=== PATIENT | female | born 2000 | race Caucasian/White ===

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

== ENCOUNTER 2024-03-28 10:46 | Emergency (ER) | payer OTHER, SELFPAY ==
--- NOTE | ~2024-03-28 | XR_ITS ---
EXAMINATION: XR forearm LT 2V, XR hand LT min 3V DATE: 03/28/2024 11:17 INDICATION: Dog bite injury to the left hand and proximal forearm TECHNIQUE: 1. AP an lateral views of the left forearm were obtained. 2. AP, oblique and lateral views of the left hand were obtained. COMPARISON: none FINDINGS: Bone alignment is normal from the left elbow through the hand. No fracture. Joint spaces are normal. Soft tissues are unremarkable. No elbow joint effusion. IMPRESSION: 1. Negative left hand and forearm radiographs. Reviewed, dictated and finalized at location A. IMPRESSION: 1. Negative left hand and forearm radiographs.
[2024-03-28 11:02] VITALS: BP 132/99; PULSE 77; RESP 16; TEMP 36.9; O2SAT 100
--- NOTE | 2024-03-28 11:28 | ED.UPPEXIN ---
HPI - Extremity Injury (Upper) General Chief Complaint: Extremity Injury, Upper Stated Complaint: left arm injury @ work Time Seen by Provider: 03/28/24 11:19 Source: patient and RN notes reviewed Mode of arrival: ambulatory Limitations: no limitations History of Present Illness HPI narrative: Patient presents today complaining of pain in tingling to the left forearm and hand. 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 The dog bit her slightly without breaking the skin, then pounced on her left forearm. Immediately she had pain in her left neck and shoulder as well as her forearm and hand. The neck and shoulder pain resolved, but the forearm and hand pain as well as tingling in the forearm and hand have persisted. The pain is slight, but the tingling is her primary concern. No treatment prior to arrival. Related Data Home Medications Medication Instructions Recorded Confirmed No Home Medications 10/17/21 10/17/21 Allergies Allergy/AdvReac Type Severity Reaction Status Date / Time latex Allergy Rash Verified 03/28/24 11:25 Review of Systems Review of Systems: CONSTITUTIONAL: Denies body aches, fever, chills, or sweats. EYES: Denies visual changes, redness, or discharge. ENT: Denies rhinorrhea, congestion, sore throat, or otalgia. CARDIOVASCULAR: Denies chest pain, palpitations, or edema. RESPIRATORY: Denies cough or dyspnea. GASTROINTESTINAL: Denies abdominal pain, nausea, vomiting, or diarrhea. GENITOURINARY: Denies dysuria or hematuria. SKIN: Denies rash, itching, or wounds. MUSCULOSKELETAL: + left forearm and hand injury NEUROLOGIC: Denies headache, numbness, or weakness.+ tingling to the left forearm and hand PSYCH: Denies depression or anxiety. [facility] Past Medical History Medical History Bipolar affect, depressed Surgical History Surgical History No pertinent past surgical history Social History Social History Living arrangements: with family Gender identity (if verbalized by the patient): Female Comments At time of signature, I have reviewed and agree with nursing past medical, surgical, social and family history unless otherwise noted. Please see nursing chart for further information. There is no relevant family history pertinent to the presenting complaint Exam Narrative: GENERAL: Well-appearing, well-nourished, and in no acute distress. HEAD: Normocephalic, atraumatic. EYES: EOMI. No redness or drainage. Conjunctivae normal. ENT: Mucous membranes pink and moist. NECK: Normal AROM. CHEST: No respiratory distress. EXTREMITIES: Left arm: Tenderness to the distal radius. No edema, deformity, ecchymosis to the or hand. Distal sensation in all 5 fingers, but patient does report tingling in fingers 1 through 3 as well as the hand and distal forearm. Full AROM of wrist with increased tingling. Patient has a faint superficial linear abrasion to the mid forearm from the dog's tooth, but no break in the skin. No tenderness to the elbow SKIN: Warm, dry, no rash. Capillary refill normal. Normal skin turgor. NEURO: No focal deficits. Alert and oriented x3. Gait steady. PSYCH: Normal affect. No signs of depression or anxiety. Course Course Level of Care: Express Care Visit Vital Signs Vital signs: Vital Signs Temperature 98.4 F 03/28/24 11:02 Pulse Rate 77 03/28/24 11:02 Respiratory Rate 16 03/28/24 11:02 Blood Pressure 132/99 H 03/28/24 11:02 Pulse Oximetry 100 03/28/24 11:02 Oxygen Delivery Room Air 03/28/24 11:02 Temperature 98.4 F 03/28/24 11:02 Pulse Rate 77 03/28/24 11:02 Respiratory Rate 16 03/28/24 11:02 Blood Pressure 132/99 H 03/28/24 11:02 Pulse Oximetry 100 03/28/24 11:02 Oxygen Delivery Room Air 03/28/24 11:0
== END 2024-03-28 11:40 | disposition home or self-care (01) ==
PROVIDERS: Emergency Provider Nurse Practitioner; PCP Physician Assistant
DX: S50.12XA Contusion of left forearm, initial encounter (principal); S60.222A Contusion of left hand, initial encounter; W54.1XXA Struck by dog, initial encounter; Y99.0 Civilian activity done for income or pay
CPT/HCPCS: 73090; 73130; 99213; G0463